=== PATIENT | female | born 1950 | race Caucasian/White ===

== ENCOUNTER 2019-07-13 09:06 | Outpatient (CLI) | payer MEDICARE, SELFPAY ==
--- NOTE | ~2019-07-13 | MM_ITS ---
EXAMINATION: MM screening [facility] BI w megan HISTORY: Screening mammogram TECHNIQUE: Craniocaudal and mediolateral oblique 3-D tomosynthesis images were obtained and synthetic 2-D images were generated. CAD analysis was submitted and interpreted. COMPARISON: Comparison to multiple prior studies sequentially, with oldest reviewed study dated 05/18. BREAST PARENCHYMAL COMPOSITION: There are scattered areas of fibroglandular density. FINDINGS: There is no evidence of suspicious mass, calcification, or architectural distortion to sugg est malignancy in either breast. There has been no suspicious interval change. IMPRESSION: 1. No mammographic evidence of malignancy. 2. Recommend routine screening mammography in one year. BI-RADS Category 1: Negative Reviewed, dictated and finalized at location A.
== END 2019-07-13 09:07 | disposition home or self-care (01) ==
PROVIDERS: PCP Family Medicine; Visit Provider Family Medicine
DX: Z12.31 Encounter for screening mammogram for malignant neoplasm of breast (principal)
CPT/HCPCS: 77063; 77067

== ENCOUNTER 2019-10-30 10:16 | Outpatient (CLI) | payer MEDICARE, SELFPAY ==
--- NOTE | ~2019-10-30 | XR_ITS ---
EXAMINATION: XR abdomen/kub 1V DATE: 10/30/2019 10:38 INDICATION: Right renal stone. TECHNIQUE: A supine view of the abdomen on 2 radiographs was obtained. COMPARISON: 02/13/2019, 10/13/2018 and 09/26/2018 FINDINGS: 1-2 mm stone projecting over the mid left kidney. The larger stones previously seen at the left and r ight kidneys are no longer visualized likely representing sequela of prior lithotripsy. Unchanged pat tern of phleboliths in the pelvis. There is a new approximate 5 mm calcification projecting over the right sacral ala along the course of the right ureter as indicated by a right internal ureteral stent on prior radiographs which is suspicious for a stone fragment in the distal right ureter. Similarly there is a new 4 mm calcific density projecting over the left sacral ala suspicious for stone fragmen t in the left ureter. Normal bowel gas pattern with moderate amount of stool scattered throughout the colon. Moderate to severe bilateral lower lumbar facet osteoarthritis. Lung bases are clear. IMPRESSION: 1. There are new 4-5 mm calcific densities projecting over the left and right sacral ala along the ex pected course of the ureters which could represent stone fragments post lithotripsy. Reviewed, dictated and finalized at location A. IMPRESSION: 1. There are new 4-5 mm calcific densities projecting over the left and right s acral ala along the expected course of the ureters which could represent stone fragments post lithotripsy.
== END 2019-10-30 10:17 | disposition home or self-care (01) ==
PROVIDERS: PCP Family Medicine; Visit Provider Urology
DX: N20.0 Calculus of kidney (principal)
CPT/HCPCS: 74018

== ENCOUNTER → 2019-11-05 08:21 | Outpatient (CLI) | payer MEDICARE, SELFPAY ==
--- NOTE | ~2019-11-05 | CT_ITS ---
EXAMINATION: CT abdomen pelvis wo con DATE: 11/05/2019 08:37 INDICATION: Abnormal KUB. Possible ureteral stones. History of kidney stones. TECHNIQUE: Computed tomography (CT) of the abdomen and pelvis was performed without intravenous contr ast. The dose-length product was 318.02 mGy-cm. Automated exposure control and iterative reconstructi on technique were employed. COMPARISON: KUB dated 05/30/2018 FINDINGS: Lung bases are unremarkable. No significant pleural or pericardial effusion. Heart size nor mal. Stable 1 cm hypodensity left hepatic lobe, consistent with a cyst. The spleen, pancreas, adrenal glands are unremarkable. There is a 2-3 mm nonobstructing left renal stone. There is a 4 mm distal r ight ureteral stone at the sacral level measuring 5 mm with moderate hydronephrosis, image 80. There is a 5 mm distal left ureteral stone overlying the sacrum, image 75, with moderate hydroureteronephro sis. Gallbladder is present. Nonobstructive bowel gas pattern. No abnormal pelvic masses or fluid collecti ons. No free air or free fluid. No evidence for hernia. No acute osseous abnormality. IMPRESSION: 1. Obstructing distal bilateral ureteral stones at the sacral level with moderate bilateral hydrouret eronephrosis. 2: Nonobstructing left nephrolithiasis. Reviewed, dictated and finalized at location A. IMPRESSION: 1. Obstructing distal bilateral ureteral stones at the sacral level with modera te bilateral hydroureteronephrosis. 2: Nonobstructing left nephrolithiasis.
== END ==
PROVIDERS: PCP Family Medicine; Visit Provider Urology
DX: N20.2 Calculus of kidney with calculus of ureter (principal)
CPT/HCPCS: 74176

== ENCOUNTER 2019-11-24 01:35 | Outpatient (CLI) | payer MEDICARE, SELFPAY ==
[2019-11-24 17:56] LABS: SARS-CoV-2 RNA PCR Negative
== END 2019-11-24 01:36 | disposition home or self-care (01) ==
LOC: ANHCOVIDDT 01:36
PROVIDERS: PCP Family Medicine; Visit Provider Urology
DX: Z01.818 Encounter for other preprocedural examination (principal); Z11.59 Encounter for screening for other viral diseases
CPT/HCPCS: 87635; C9803; U0003

== ENCOUNTER 2019-11-24 08:17 | Outpatient (CLI) | payer MEDICARE, SELFPAY ==
--- NOTE | 2019-11-24 08:18 | ECG_ITS ---
Measurements Intervals [place] Rate: 61 P: 19 NM: 177 QRS: 8 QRSD: 143 T: 7 QT: 416 QTc: 421 Interpretive Statements SINUS RHYTHM RIGHT BUNDLE BRANCH BLOCK ABNORMAL ECG Electronically Signed On 11-24-2019 8:38:38 CDT by Nikhil Ortega D.O.
[2019-11-24 08:52] LABS: Anion Gap 11.6 mmol/L (7-16); Blood Urea Nitrogen 23 mg/dL (7-17); Calcium 9.1 mg/dL (8.4-10.2); Carbon Dioxide 30 mmol/L (22-30); Chloride 99 mmol/L (98-107); Estimated Glomerular Filt Rate 50; Glucose 99 mg/dL (65-105); Potassium 4.6 mmol/L (3.4-5.0); Sodium 136 mmol/L (137-145)
== END 2019-11-24 08:18 | disposition home or self-care (01) ==
LOC: ANHSURGERY 08:18
PROVIDERS: Anesthesiology; PCP Family Medicine; Visit Provider Urology
DX: Z01.818 Encounter for other preprocedural examination (principal); I10 Essential (primary) hypertension; R94.31 Abnormal electrocardiogram [ECG] [EKG]
CPT/HCPCS: 36415; 80048; 87635; 93005; C9803; U0003

== ENCOUNTER 2019-11-26 02:11 | Day surgery (SDC) | payer MEDICARE, SELFPAY ==
[2019-11-13 10:39] VITALS: BMI 25.0
--- NOTE | 2019-11-23 18:18 | P.HP_ITS ---
History of Present Illness History of Present Illness Consent: Risks, benefits, and alternatives have been discussed and questions answered. Patient agrees to proceed with procedure. Chief complaint: History of Kidney Stones Narrative: Promise Jerome is a 68 year old female with a history of hyperparathyroidism. During routine followups, although she was having no pain, a KUB suggested the presence of bilateral mid ureteral stones. This was confirmed by CT scan of the abdomen and pelvis without contrast. She now presents for endoscopic extraction of the stones. Review of Systems Cardiovascular: Cardiovascular: Denies chest pain, Denies lightheadedness, Denies palpitations and Denies dyspnea Respiratory: Respiratory: Denies dyspnea Gastrointestinal: Gastrointestinal: Denies diarrhea, Denies nausea and Denies vomiting Genitourinary: Genitourinary: Denies hematuria and Denies dysuria Endocrine: Endocrine: Denies palpitations PMFSH Past Medical History Medical History Hepatitis C antibody test negative (~06/17/17) Hyperparathyroidism Surgical History Surgical History History of bilateral oophorectomy (~11/28/11) History of hysterectomy (~11/28/11) History of parathyroidectomy (~01/2019) Family History Family History Father Family history of premature coronary heart disease Hypertension Family history of elevated blood lipids Acute myocardial infarction Family history of cardiovascular disease Mother Hypertension Family history of elevated blood lipids Sibling Hypertension Family history of elevated blood lipids Social History Social History Smoking status: Never smoker Second hand tobacco smoke exposure: No Alcohol intake: current Drinks per week: 2 Substance use: never Spiritual care concerns: No Meds Home Medications and Allergies Home Medications Medication Instructions Recorded Confirmed Type cholecalciferol (vitamin D3) 50 2,000 unit PO DAILY 04/07/19 11/13/19 History mcg (2,000 unit) tablet melatonin 5 mg tablet 10 mg PO HS tablet 04/07/19 11/13/19 History hydrochlorothiazide 12.5 mg tablet 12.5 mg PO DAILY #90 tablet 07/13/19 11/13/19 Rx losartan 100 mg tablet 100 mg PO DAILY #90 tablet 09/29/19 11/13/19 Rx simvastatin 10 mg PO QPM 11/13/19 11/13/19 History Allergies Allergy/AdvReac Type Severity Reaction Status Date / Time codeine Allergy Unknown Nausea Verified 11/13/19 10:21 Exam Const: General: no acute distress Resp: Effort & Inspection: normal respiratory effort GI: Inspection: non-distended GI Palp: No abdominal tenderness and No Guarding due to palpation present (GI) Auscultation: normal bowel sounds Assessment and Plan Assessment and plan (1) Bilateral ureteral calculi: Code(s): N20.1 - Calculus of ureter Status: Acute Assessment and Plan: * Cystoscopy with bilateral ureteroscopy, bilateral ureteral stone extraction with possible laser lithotripsy, bilateral ureteral stent placement
--- NOTE | 2019-11-25 09:55 | WPDANESEPPF ---
Anes - Initial Pre Proc Eval Procedure: Operation Date: 11/26/19 12:00 Proposed Procedures p Cystoscopy, Bilateral Ureteroscopy, Bilateral Stone Extraction, And Possible Bilateral Stent Placement - Cirilo Benson MD s Holmium Laser Procedure - Cirilo Benson MD <Dorian Choe MD - Last Filed: 11/27/19 10:06> Date/Time: 11/25/19 09:55 <Dorian Choe MD - Last Filed: 11/27/19 10:06> Surgeon: Cirilo Benson MD <Dorian Choe MD - Last Filed: 11/27/19 10:06> Pre Op Diagnosis: History of Kidney Stones <Dorian Choe MD - Last Filed: 11/27/19 10:06> Patient Data Age: 68 Gender: F Height: 1.57 m Weight: 62.15 kg <Dorian Choe MD - Last Filed: 11/27/19 10:06> Allergies Allergy/AdvReac Type Severity Reaction Status Date / Time codeine Allergy Unknown Nausea Verified 11/26/19 10:05 <Dorian Choe MD - Last Filed: 11/27/19 10:06> Home Medications Medication Instructions Recorded Confirmed Type cholecalciferol (vitamin D3) 50 2,000 unit PO DAILY 04/07/19 11/26/19 History mcg (2,000 unit) tablet melatonin 5 mg tablet 10 mg PO HS tablet 04/07/19 11/26/19 History hydrochlorothiazide 12.5 mg tablet 12.5 mg PO DAILY #90 tablet 07/13/19 11/26/19 Rx losartan 100 mg tablet 100 mg PO DAILY #90 tablet 09/29/19 11/26/19 Rx simvastatin 10 mg PO QPM 11/13/19 11/26/19 History hydrocodone-acetaminophen 1 - 2 tablet PO Q6H PRN #20 tablet 11/26/19 Rx sulfamethoxazole-trimethoprim 1 tablet PO Q12H #6 tablet 11/26/19 Rx <Dorian Choe MD - Last Filed: 11/27/19 10:06> Patient hx anesthesia problems: none <Carlos Pierce DO - Last Filed: 11/26/19 10:20> Family hx anesthesia problems: none <Carlos Pierce DO - Last Filed: 11/26/19 10:20> [facility] Family History Family History: Family History Father Family history of premature coronary heart disease Hypertension Family history of elevated blood lipids Acute myocardial infarction Family history of cardiovascular disease Mother Hypertension Family history of elevated blood lipids Sibling Hypertension Family history of elevated blood lipids <Dorian Choe MD - Last Filed: 11/27/19 10:06> Social History Social History: Social History Smoking status: Never smoker Second hand tobacco smoke exposure: No Alcohol intake: current Drinks per week: 2 Alcohol use details: WINE Substance use: never Living arrangements: with family Spiritual care concerns: No <Dorian Choe MD - Last Filed: 11/27/19 10:06> Anes - Eval Final PreProcedure Day of Procedure 11/25/19 09:55 <Dorian Choe MD - Last Filed: 11/27/19 10:06> Patient weight: overweight <Dorian Choe MD - Last Filed: 11/27/19 10:06> overweight <Carlos Pierce DO - Last Filed: 11/26/19 10:20> Heart: regular rate and rhythm <Dorian Choe MD - Last Filed: 11/27/19 10:06> regular rate and rhythm <Carlos Pierce DO - Last Filed: 11/26/19 10:20> Lungs: clear to auscultation and normal air movement <Dorian Choe MD - Last Filed: 11/27/19 10:06> clear to auscultation and normal air movement <Carlos Pierce DO - Last Filed: 11/26/19 10:20> Airway: Mallampati scale class II <Dorian Choe MD - Last Filed: 11/27/19 10:06> Mallampati scale class II <Carlos Pierce DO - Last Filed: 11/26/19 10:20> Neurological: alert and oriented <Dorian Choe MD - Last Filed: 11/27/19 10:06> alert and oriented <Carlos Pierce DO - Last Filed: 11/26/19 10:20> Last oral intake: >/= 8 hours <Dorian Choe MD - Last Filed: 11/27/19 10:06> >/= 8 hours <Carlos Pierce DO - Last Filed: 11/26/19 10:20> ASA classification: II <Dorian Dale
[2019-11-26] VITALS (7 sets, daily range): BP systolic 118–137; BP diastolic 68–76; PULSE 62–75; RESP 12–20; TEMP 36.3; O2SAT 100
--- NOTE | ~2019-11-26 | XR_ITS ---
EXAMINATION: XR retrograde pyelo w/stent LT DATE: 11/26/2019 12:36 INDICATION: Left internal ureteral stent placement TECHNIQUE: Fluoroscopic images from a left internal ureteral stent placement are submitted for review . 38 seconds of fluoroscopy time. FINDINGS: There is a left double-J internal ureteral stent projecting in expected position, with proximal [place] loop at the level of the renal pelvis and distal loop in the pelvis within the bladder lumen. IMPRESSION: 1. Left internal ureteral stent placement. Please refer to real-time procedural findings for detail s. Reviewed, dictated and finalized at location A. IMPRESSION: 1. Left internal ureteral stent placement. Please refer to real-time procedur al findings for details.
--- NOTE | 2019-11-26 06:55 | WPDHPUPDATE1 ---
History and Physical Update Update Date/Time: 11/26/19 06:55 History and Physical has been reviewed, including an updated exam of the patient. There are NO changes in the patient's condition. Risks, benefits, and alternatives have been discussed and questions answered. Patient agrees to proceed with procedure.
[2019-11-26] MEDS: LACTATED RINGERS 1,000 ML 30 ML IV CONT (10:00)
[2019-11-26] MEDS: ceFAZolin 2 GM/D5W 50 ML 2 GM/50 ML BAG IVPB (11:45)
--- NOTE | 2019-11-26 12:33 | PM.PROC ---
Procedure Note - Detailed Date of procedure: 11/26/19 Pre-op diagnosis: History of Kidney Stones Post-op diagnosis: same Procedure performed: 1. Cystoscopy, right ureteroscopy with stone extraction 2. Left retrograde pyelogram. 3. Left laser lithotripy with stone extraction. 4. Left stent placement. Description of procedure: The patient was brought to the operative suite where she is prepped and draped in a routine sterile fashion while in the dorsal lithotomy position after the uneventful induction of a general LMA anesthetic. A 19F rigid cystoscope was placed in the bladder. The patient had no evidence of urethral stricture or bladder neck contracture. The bladder mucosa was endoscopically normal without hyperemia or neoplasm. There was a single, orthotopic ureteral orifice bilaterally. A 0.035 glidewire was advanced firstinto the right renal pelvis under fluoroscopy. The distal ureter was dilated with an 8F/10F ureteral dilator. Ureteroscopy was undertaken with a short tapered semi-rigid ureteroscope. There was a 5mm right mid-uretral stone - with ureteroscopy I was able to extract the stone using a 1.9F Escape, disposable stone basket. This was a simple ureteral management and I opted not to place a ureteral stent. A 0.035 guidewire was then advanced into the left ureter and ureteoscopy was undertaken after dilating with a 8F/10F dilator. On the left she has a larger impacted stone that I fractured with a 273micron holmium laser fiber and extracted all small pieces. Due to the extent of this manipulation I did place a 4.8F double-J ureteral stent on the left side. The proximal coil of the stent was confirmed to be in the renal pelvis and the distal coil in the bladder. The patient's bladder was emptied and she was taken to the recovery room having tolerated this procedure well. Anesthesia: GLMA Surgeon: Cirilo Benson MD Cardiovascular Invasive Specialist: None Drains: Yes (4.8F left ureteral stent) Packing: No Pathology: yes (Bilateral ureteral stones) Complications: No immediate complications Condition: stable Disposition: PACU
== END 2019-11-26 14:22 | disposition home or self-care (01) ==
PROVIDERS: PCP Family Medicine; Visit Provider Urology
PROC: (CPT 52352; principal; 2019-11-26 12:00)
PROC: (CPT 52356; 2019-11-26 12:00)
DX: N20.1 Calculus of ureter (principal); E21.3 Hyperparathyroidism, unspecified
CPT/HCPCS: 52356; 74420; 82365; 88300; A9270; C1769; C2617; J0690; J1100; J2405; J2704; J3010; J7120; Q9966

== ENCOUNTER 2020-01-25 15:43 | Outpatient (CLI) | payer MEDICARE, SELFPAY ==
--- NOTE | 2020-01-28 12:22 | WPDHOLTEREM ---
Holter/Event Monitor Holter/Event Monitor Date of procedure: 01/25/20 Procedure Type: 48 hour holter monitor Indications: Palpitations Conclusion: 1. 48 hour holter monitor on 01/25/20. 2. Underlying rhythm is sinus rhythm. HR range 46-130 bpm; average HR 72 bpm. 3. There are 10 premature supraventricular complexes and 1 supraventricular triplet. No supraventricular tachycardia. 4. There are 1,957 premature ventricular complexes, 1 ventricular couplet and 9 ventricular bigeminy. No ventricular tachycardia. 5. Underlying RBBB. No sinoatrial or atrioventricular blocks. No significant pauses greater than 2 seconds. 6. Patient reports 2 episodes of chest pressure which demonstrate sinus rhythm, HR range 94-95 bpm and one PVC.
== END 2020-01-25 15:44 | disposition home or self-care (01) ==
PROVIDERS: PCP Family Medicine; Visit Provider Internal Medicine Cardiovascular Disease
DX: R00.2 Palpitations (principal)
CPT/HCPCS: 36415; 84443; 93225; 93226

== ENCOUNTER → 2020-07-14 13:32 | Outpatient (CLI) | payer MEDICARE, SELFPAY ==
--- NOTE | ~2020-07-14 | XR_ITS ---
EXAMINATION: XR abdomen/kub 1V EXAM DATE: 07/14/2020 13:48 INDICATION: History kidney stones. TECHNIQUE: Frontal projection of the upper abdomen, frontal projection lower abdomen/pelvis for inter pretation. Comparison is made to prior examination from 10/30/2019. FINDINGS: There is expected amount of colonic stool and gas. No small bowel dilation, nonobstructiv e bowel gas pattern. There are no suspicious calcifications identified, stool does overlie the jody l contours. There is no organomegaly suspected. Advanced facet arthropathy at about L4-5. Lung bas es unremarkable. IMPRESSION: No suspicious calcifications identified. Reviewed, dictated and finalized at location A.
== END ==
PROVIDERS: PCP Family Medicine; Visit Provider Urology
DX: Z87.442 Personal history of urinary calculi (principal)
CPT/HCPCS: 74018

== ENCOUNTER 2020-09-08 09:26 | Outpatient (CLI) | payer MEDICARE, SELFPAY ==
--- NOTE | ~2020-09-08 | MM_ITS ---
EXAMINATION: MM screening [facility] BI w megan HISTORY: Screening mammogram TECHNIQUE: Craniocaudal and mediolateral oblique 3-D tomosynthesis images were obtained and synthetic 2-D images were generated. CAD analysis was submitted and interpreted. COMPARISON: 07/13/2019, 07/08/2018, 06/27/2017 BREAST PARENCHYMAL COMPOSITION: There are scattered areas of fibroglandular density. FINDINGS: There is no evidence of suspicious mass, calcification, or architectural distortion to sugg est malignancy in either breast. There has been no suspicious interval change. IMPRESSION: 1. No mammographic evidence of malignancy. 2. Recommend routine screening mammography in one year. BI-RADS Category 1: Negative Reviewed, dictated and finalized at location A.
== END 2020-09-08 09:27 | disposition home or self-care (01) ==
PROVIDERS: PCP Family Medicine; Visit Provider Family Medicine
DX: Z12.31 Encounter for screening mammogram for malignant neoplasm of breast (principal)
CPT/HCPCS: 77063; 77067

== ENCOUNTER 2020-10-17 09:21 | Outpatient (CLI) | payer MEDICARE, SELFPAY ==
--- NOTE | ~2020-10-17 | DEXA_ITS ---
Bone Density Report Name: Promise Jerome Age: 69 Sex: Female Ethnicity: White Date of : 1950 Indication: osteopenia; monitoring treatment; height loss; hysterectomy; Referring Provider: Tuyet Benson Study: Bone densitometry was performed. Exam Date: October 17, 2020 Accession number: [id number] Bone Density: Region BMD T-score Z-score Classification AP Spine (L1-L4) 0.876 -1.6 0.5 Osteopenia Femoral Neck (Left) 0.653 -1.8 0.0 Osteopenia Total Hip (Left) 0.858 -0.7 0.7 Normal Total Hip Bilateral Avg 0.831 -0.9 0.5 Normal Femoral Neck (Right) 0.659 -1.7 0.0 Osteopenia Total Hip (Right) 0.803 -1.1 0.3 Osteopenia World Health Organization criteria for BMD impression classify patients as: Normal (T-score at or above -1.0), Osteopenia (T-score between -1.0 and -2.5), or Osteoporosis (T-score at or below -2.5). 10-year Fracture Risk: FRAX not reported because: Treated for osteoporosis Previous Exams: Region Exam Age BMD T-score BMD Change BMD Change Date g/cm2 vs Baseline vs Previous AP Spine(L1-L4) 10/17/2020 69 0.876 -1.6 0.078(9.7%)# 0.078(9.7%)# 05/11/2011 60 0.798 -2.3 Total Hip(Left) 10/17/2020 69 0.858 -0.7 0.014(1.7%)# 0.014(1.7%)# 05/11/2011 60 0.844 -0.8 Total Hip(Right) 10/17/2020 69 0.803 -1.1 0.000(0.0%)# 0.000(0.0%)# 05/11/2011 60 0.803 -1.1 *Denotes significance at 95% confidence level, LSC for AP Spine = 0.022 g/cm2, LSC for Total Hip = 0.027 g/cm2 Clinical Information Provided by Patient: Is being treated for osteoporosis Has used the following medications: Fosamax (i.e. alendronate), Vitamin D, Calcium Has the following medical conditions: Hysterectomy Patient maximum height was 62 Menopause Age: 41 Onset of menses at age 14 Number of children 2 Impression: The patient has low bone mass, based on the Left Femoral Neck T-score. No significant bone loss was observed. Discussion: PATIENT UNDER TREATMENT WITH NO SIGNIFICANT BMD LOSS SINCE LAST EXAM. In an untreated patient, BMD typically declines with age. A lack of decline or gain is usually a sign that treatment is efficacious and fracture risk is reduced. It is important to ask patients whether they are taking their medications and to encourage continued and appropriate compliance with their osteoporosis therapies to reduce fracture risk. It is also important to review their risk factors and encourage appropriate calcium and vitamin D intakes,
== END 2020-10-17 09:22 | disposition home or self-care (01) ==
LOC: ANHIMG 09:23
PROVIDERS: PCP Family Medicine; Visit Provider Physician Assistant
DX: Z78.0 Asymptomatic menopausal state (principal); M85.88 Other specified disorders of bone density and structure, other site; M85.852 Other specified disorders of bone density and structure, left thigh; M85.851 Other specified disorders of bone density and structure, right thigh
CPT/HCPCS: 77080

== ENCOUNTER 2020-11-17 01:45 | Day surgery (SDC) | payer MEDICARE, SELFPAY ==
[2020-11-03 10:25] VITALS: BMI 26.6
[2020-11-17 06:22] VITALS: BP 136/69; PULSE 78; RESP 20; TEMP 36.6; O2SAT 99
--- NOTE | 2020-11-17 06:44 | WPDANESEPPF ---
Anes - Initial Pre Proc Eval Procedure: Operation Date: 11/17/20 07:30 Proposed Procedures p Screening Colonoscopy - Caden Goldsmith MD Date/Time: 11/17/20 06:44 Surgeon: Caden Goldsmith MD Pre Op Diagnosis: neoplasm screening Patient Data Age: 69 Gender: F Height: 1.55 m Weight: 62.3 kg Last Vital Signs Temp 36.6 C 11/17/20 06:22 Pulse 78 11/17/20 06:22 Resp 20 11/17/20 06:22 BP 136/69 11/17/20 06:22 Pulse Ox 99 11/17/20 06:22 Allergies Allergy/AdvReac Type Severity Reaction Status Date / Time codeine Allergy Unknown Nausea Verified 11/17/20 06:16 Home Medications Medication Instructions Recorded Confirmed Type cholecalciferol (vitamin D3) 50 2,000 unit PO DAILY 04/07/19 11/17/20 History mcg (2,000 unit) tablet melatonin 5 mg tablet 10 mg PO HS PRN tablet 04/07/19 11/17/20 History hydrochlorothiazide 12.5 mg PO DAILY 11/03/20 11/17/20 History losartan 50 mg PO DAILY 11/03/20 11/17/20 History simvastatin 20 mg PO DAILY 11/03/20 11/17/20 History Patient hx anesthesia problems: none Family hx anesthesia problems: none PMFSH Past Medical History Medical History Chronic kidney disease, stage 3 Essential (primary) hypertension Hepatitis C antibody test negative (~06/17/17) Hyperparathyroidism Irregular heart beat Pure hypercholesterolemia Surgical History Surgical History History of bilateral oophorectomy (~11/28/11) History of hysterectomy (~11/28/11) History of Mohs micrographic surgery for skin cancer (~06/29/20) nose and right cheek, with skin graft repair 07/08/20 History of parathyroidectomy (~01/2019) Family History Family History Father Family history of premature coronary heart disease Hypertension Family history of elevated blood lipids Acute myocardial infarction Family history of cardiovascular disease Mother Hypertension Family history of elevated blood lipids Sibling Hypertension Family history of elevated blood lipids Social History Social History Smoking status: Never smoker Second hand tobacco smoke exposure: No Alcohol intake: current Drinks per week: 2 Alcohol use details: Monthly Substance use: never Living arrangements: with family Spiritual care concerns: No Anes - Eval Final PreProcedure Day of Procedure 11/17/20 06:44 Patient weight: overweight Heart: regular rate and rhythm Lungs: clear to auscultation Airway: Mallampati scale Neurological: alert and oriented Last oral intake: >/= 8 hours ASA classification: III Emergent: no Anesthetic plan: proceed Anesthesia type and monitoring: general GIVS and standard monitoring Informed Consent: The patient's anesthetic plan and its attendant risks and benefits were discussed with the patient/family/POA. Questions were solicited and answers provided to the satisfaction of the patient/family/POA.
[2020-11-17] MEDS: LACTATED RINGERS 1,000 ML 150 ML IV CONT (06:58)
--- NOTE | 2020-11-17 07:09 | WPDGICN ---
Assessment and Plan Assessment and plan (1) Encounter for screening colonoscopy: Code(s): Z12.11 - Encounter for screening for malignant neoplasm of colon Status: Acute Assessment and Plan: Patient presents for screening colonoscopy. Has been 10 years since last exam. She appears to be at average risk for colon polyps. Further recommendations will be given after endoscopy. GI Consult Note Consult date/time: 11/17/20 07:09 HPI: Promise Jerome is a 69 year old female Presents for screening colonoscopy. Patient states that her current weight appetite and bowel movements are normal. She denies abdominal pain. She has had no bleeding. She denies abdominal pain. Family history is noncontributory. Her last colonoscopy was in 2010. Review of Systems Review of Systems: All systems reviewed & are unremarkable except as noted in HPI and below PMFSH Past Medical History Medical History Chronic kidney disease, stage 3 Essential (primary) hypertension Hepatitis C antibody test negative (~06/17/17) Hyperparathyroidism Irregular heart beat Pure hypercholesterolemia Surgical History Surgical History History of bilateral oophorectomy (~11/28/11) History of hysterectomy (~11/28/11) History of Mohs micrographic surgery for skin cancer (~06/29/20) nose and right cheek, with skin graft repair 07/08/20 History of parathyroidectomy (~01/2019) Family History Family History Father Family history of premature coronary heart disease Hypertension Family history of elevated blood lipids Acute myocardial infarction Family history of cardiovascular disease Mother Hypertension Family history of elevated blood lipids Sibling Hypertension Family history of elevated blood lipids Social History Social History Smoking status: Never smoker Second hand tobacco smoke exposure: No Alcohol intake: current Drinks per week: 2 Alcohol use details: Monthly Substance use: never Living arrangements: with family Spiritual care concerns: No Meds Home Medications and Allergies Home Medications Medication Instructions Recorded Confirmed Type cholecalciferol (vitamin D3) 50 2,000 unit PO DAILY 04/07/19 11/17/20 History mcg (2,000 unit) tablet melatonin 5 mg tablet 10 mg PO HS PRN tablet 04/07/19 11/17/20 History hydrochlorothiazide 12.5 mg PO DAILY 11/03/20 11/17/20 History losartan 50 mg PO DAILY 11/03/20 11/17/20 History simvastatin 20 mg PO DAILY 11/03/20 11/17/20 History Allergies Allergy/AdvReac Type Severity Reaction Status Date / Time codeine Allergy Unknown Nausea Verified 11/17/20 06:16 Vital Signs Vital Signs - 24 hr 11/17/20 06:22 Temperature 97.8 F Pulse Rate 78 Respiratory Rate 20 Blood Pressure 136/69 Pulse Oximetry 99 Exam Narrative: Exam Narrative: Physical exam reveals Vital Signs to be stable. HEENT exam is unremarkable. Patient is anicteric. Lungs are clear to auscultation and percussion. Heart is without murmur or extra sounds. Abdominal exam bowel sounds are present soft nontender with no organomegaly. Digital external rectal exam is normal.
[2020-11-17 07:47] VITALS: BP 80/38; PULSE 68; RESP 29; O2SAT 99
[2020-11-17 07:57] VITALS: BP 74/42; PULSE 67; RESP 25; O2SAT 100
[2020-11-17 08:07] VITALS: BP 96/51; PULSE 66; RESP 17; O2SAT 100
== END 2020-11-17 08:15 | disposition home or self-care (01) ==
PROVIDERS: PCP Family Medicine; Visit Provider Internal Medicine Gastroenterology
PROC: 0DJD8ZZ Inspection of Lower Intestinal Tract, Via Natural or Artificial Opening Endoscopic (ICD-10-PCS; CPT 45378; principal; 2020-11-17 07:30)
DX: Z12.11 Encounter for screening for malignant neoplasm of colon (principal); K64.8 Other hemorrhoids; I12.9 Hypertensive chronic kidney disease with stage 1 through stage 4 chronic kidney disease, or unspecified chronic kidney disease; N18.30 Chronic kidney disease, stage 3 unspecified; E78.00 Pure hypercholesterolemia, unspecified; E21.3 Hyperparathyroidism, unspecified
CPT/HCPCS: G0121; J2704; J7120

== ENCOUNTER 2021-09-20 15:32 | Outpatient (CLI) | payer MEDICARE, SELFPAY ==
--- NOTE | ~2021-09-20 | MM_ITS ---
EXAMINATION: MM screening roberto carlos BI w megan HISTORY: Screening mammogram TECHNIQUE: Craniocaudal and mediolateral oblique 3-D tomosynthesis images were obtained and synthetic 2-D images were generated. CAD analysis was submitted and interpreted. COMPARISON: 09/08/2020, 07/13/2019, 07/08/2018 bilateral screening mammogram examinations BREAST PARENCHYMAL COMPOSITION: The breasts are almost entirely fatty.. FINDINGS: There is no evidence of suspicious mass, calcification, or architectural distortion to sugg est malignancy in either breast. There has been no suspicious interval change. IMPRESSION: 1. No mammographic evidence of malignancy. 2. Recommend routine screening mammography in one year. BI-RADS Category 1: Negative Reviewed, dictated and finalized at location A.
== END 2021-09-20 15:33 | disposition home or self-care (01) ==
LOC: ANHIMG 15:33
PROVIDERS: PCP Family Medicine; Visit Provider Family Medicine
DX: Z12.31 Encounter for screening mammogram for malignant neoplasm of breast (principal)
CPT/HCPCS: 77063; 77067

== ENCOUNTER 2023-08-07 09:51 | Outpatient (CLI) | payer MEDICARE, SELFPAY ==
--- NOTE | ~2023-08-07 | DEXA_ITS ---
Bone Density Report Name: MARTÍN CHAMBERLAIN Age: 72 Sex: Female Ethnicity: White Date of : 1950 Indication: osteopenia; height loss; hysterectomy; Referring Provider: JERSON CHANEL Study: Bone densitometry was performed. Exam Date: August 07, 2023 Accession number: [id number] Bone Density: Region BMD T-score Z-score Classification AP Spine(L1-L4) 0.880 -1.5 0.7 Osteopenia Femoral Neck (Left) 0.683 -1.5 0.4 Osteopenia Total Hip (Left) 0.845 -0.8 0.8 Normal Femoral Neck (Right) 0.664 -1.7 0.2 Osteopenia Total Hip (Right) 0.819 -1.0 0.6 Normal Total Hip Mean 0.832 -0.9 0.7 Normal World Health Organization criteria for BMD impression classify patients as: Normal (T-score at or above -1.0), Osteopenia (T-score between -1.0 and -2.5), or Osteoporosis (T-score at or below -2.5). 10-year Fracture Risk(1): Major Osteoporotic Fracture 11% Hip Fracture 1.9% Reported Risk Factors: [place] (), Neck BMD=0.664, BMI=24.9 (1) FRAX(R) Version 3.08. Fracture probability calculated for an untreated patient. Fracture probability may be lower if the patient has received treatment. Previous Exams: Region Exam Age BMD T-score BMD Change BMD Change Date g/cm2 vs Baseline vs Previous AP Spine (L1-L4) 08/07/2023 72 0.880 -1.5 0.004 (0.5%) 0.004 (0.5%) 10/17/2020 69 0.876 -1.6 Total Hip(Left) 08/07/2023 72 0.845 -0.8 -0.014 (-1.6%) -0.014 (-1.6%) 10/17/2020 69 0.858 -0.7 Total Hip(Right) 08/07/2023 72 0.819 -1.0 0.016 (2.0%) 0.016 (2.0%) 10/17/2020 69 0.803 -1.1 *Denotes significance at 95% confidence level, LSC for AP Spine = 0.022 g/cm2, LSC for Total Hip = 0.027 g/cm2 Clinical Information Provided by Patient: Has used the following medications: Vitamin D Has the following medical conditions: Hysterectomy Patient maximum height was 62 Menopause Age: 41 Onset of menses at age 14 Number of children 2 Impression: The patient has low bone mass, based on the Right Femoral Neck T-score. The patient has an estimated ten-year risk of hip fracture of 1.9% and an estimated ten-year risk of major fracture of 11%, based on the WHO FRAX algorithm. No significant bone loss was observed. Discussion: BONE DENSITY IS LOW AT ONE OR MORE SKELETAL SITES. This patient's lowest T-score is low at one or more skeletal sites. It meets the World Health Organization's (WHO) criteria for ?low bone mass? (T-score b
== END 2023-08-07 09:52 | disposition home or self-care (01) ==
PROVIDERS: PCP Family Medicine; Visit Provider Nurse Practitioner
DX: Z78.0 Asymptomatic menopausal state (principal); M85.89 Other specified disorders of bone density and structure, multiple sites
CPT/HCPCS: 77080

== ENCOUNTER 2023-09-16 09:46 | Outpatient (CLI) | payer MEDICARE, SELFPAY ==
--- NOTE | ~2023-09-16 | MM_ITS ---
EXAMINATION: MM screening roberto carlos BI w megan HISTORY: Screening TECHNIQUE: Craniocaudal and mediolateral oblique 3-D tomosynthesis images were obtained and synthetic 2-D images were generated. CAD analysis was submitted and interpreted. COMPARISON: Comparison to multiple prior studies sequentially, with oldest reviewed study dated 05/24. BREAST PARENCHYMAL COMPOSITION: Not dense: There are scattered areas of fibroglandular density. FINDINGS: There is no evidence of suspicious mass, calcification, or architectural distortion to sugg est malignancy in either breast. There has been no suspicious interval change. IMPRESSION: 1. No mammographic evidence of malignancy. 2. Recommend routine screening mammography in one year. BI-RADS Category 1: Negative Reviewed, dictated and finalized at location A.
== END 2023-09-16 09:47 | disposition home or self-care (01) ==
LOC: ANHIMG 09:49
PROVIDERS: PCP Family Medicine; Visit Provider Nurse Practitioner
DX: Z12.31 Encounter for screening mammogram for malignant neoplasm of breast (principal)
CPT/HCPCS: 77063; 77067

== ENCOUNTER 2024-01-31 10:26 | Outpatient (CLI) | payer MEDICARE, SELFPAY ==
[2024-01-31 16:12] LABS: Hemoglobin 14.7 g/dL (12.0-15.0); Mean Corpuscular HGB Conc 33.4 g/dl (32-36); Mean Corpuscular Hemoglobin 31.5 pg (26-34); Mean Corpuscular Volume 94.2 fl (80-100); Mean Platelet Volume 9.6 fl (7.4-10.4); Platelet Count Result 388 k/mm3 (150-375); Red Blood Count 4.67 M/mm3 (4.2-5.4); White Blood Count 7.7 K/mm3 (4.5-10.0)
[2024-01-31 16:30] LABS: Alanine Aminotransferase 24 U/L (6-35); Albumin Level 4.3 g/dL (3.5-5.1); Alkaline Phosphatase 92 U/L (38-126); Anion Gap 5 mmol/L (4-12); Aspartate Amino Transferase 38 U/L (14-36); Bilirubin,Total 0.8 mg/dL (0.2-1.3); Blood Urea Nitrogen 17 mg/dL (7-17); Calcium 9.1 mg/dL (8.4-10.2); Carbon Dioxide 32 mmol/L (22-30); Chloride 102 mmol/L (98-107); Cholesterol 188 mg/dL (0-200); Estimated Glomerular Filt Rate 55; Glucose 94 mg/dL (65-110); HDL Direct 70 mg/dL; Potassium 4.8 mmol/L (3.4-5.0); Sodium 139 mmol/L (137-145); Triglycerides 95 mg/dL (<150)
[2024-01-31 16:46] LABS: LDL Cholesterol Direct 85 mg/dL
[2024-02-05 17:58] LABS: Vitamin D 1,25 (OH)2 Total 32 pg/mL (18-72); Vitamin D2 1,25 (OH)2 <8 pg/mL; Vitamin D3 1,25 (OH)2 32 pg/mL
== END 2024-01-31 10:27 | disposition home or self-care (01) ==
LOC: ANHGOSHLAB 10:27
PROVIDERS: PCP Family Medicine; Visit Provider Family Medicine
DX: E66.3 Overweight (principal); I10 Essential (primary) hypertension; E55.9 Vitamin D deficiency, unspecified; E78.00 Pure hypercholesterolemia, unspecified; Z79.899 Other long term (current) drug therapy
CPT/HCPCS: 36415; 80053; 80061; 82652; 84443; 85027

== ENCOUNTER 2024-02-20 13:21 | Outpatient (CLI) | payer MEDICARE, SELFPAY ==
--- NOTE | ~2024-02-20 | US_ITS ---
EXAM: Focused ultrasound examination of the soft tissues of the left upper extremity HISTORY: R22.31 - Localized swelling, mass and lump, right upper limb TECHNIQUE: Sonographic evaluation of the soft tissues of the left upper arm were performed assessing grayscale appearance and color Doppler flow. COMPARISON: None. FINDINGS: Within the area of clinical concern is a well-circumscribed fusiform shaped focus of decreased homoge neous echogenicity measuring 16 x 14 x 10 mm. Exiting this lesion and coursing centrally is what may be the median nerve. The more distal portion of the median nerve (lateral to this finding) is not definitively visualized. This focus is central to the brachial artery and vein and demonstrates internal vascularity. The fusiform shape is eccentric in location when oriented to the median nerve. Sonographic evaluation of the remainder of the soft tissues of the left upper arm demonstrate benign fibrofatty and fibromuscular elements without a cystic or solid lesion of concern. 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 Less likely etiologies are sarcoma, an enlarged lymph node, and a metastatic deposit. This focus may be amenable to percutaneous biopsy, should that be necessary. Although, given its prox imity to the median nerve, this may be significantly painful. Referral for surgical resection with sparing of the parent median nerve is recommended. Reviewed, dictated and finalized at location A. 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 Less likely etiologies are sarcoma, an enlarged lymph node, and a metastatic de posit. This focus may be amenable to percutaneous biopsy, should that be necessary. Al though, given its proximity to the median nerve, this may be significantly pain ful. Referral for surgical resection with sparing of the parent median nerve is teddy mmended.
== END 2024-02-20 13:22 | disposition home or self-care (01) ==
LOC: GOSHIMG 13:22
PROVIDERS: PCP Family Medicine; Visit Provider Nurse Practitioner
DX: R22.31 Localized swelling, mass and lump, right upper limb (principal)
CPT/HCPCS: 76882

== ENCOUNTER 2024-03-03 08:37 | Outpatient (CLI) | payer MEDICARE, SELFPAY ==
--- NOTE | 2024-03-03 08:53 | EST_ITS ---
Patient Info Name: Promise Jerome Age: 73 years : 1950 Gender: Female Ht: 62 in Wt: 135 lbs BSA: 1.65 m2 HR: 79 bpm BP: 143 / 90 mmHg Exam Date: 03/03/2024 9:02 AM Exam Location: [facility] Patient Status: Outpatient Admit Date: 03/03/2024 Staff Ordering Physician: Alba Shanks Attending Provider: Alba Shanks Exercise Technologist: Dot Parish [facility] Exercise Physician: Nikhil Ortega DO Exam Type: CA stress test treadmill Study Info A treadmill exercise stress test was performed. Summary 1. 1. Negative [place] exercise stress test for ischemic ST changes by ECG criteria. 2. 2. Good functional capacity, achieving 7 METs of workload. 3. 3. Baseline hypertension. 4. 4. Appropriate HR response to exercise. 5. 5. Appropriate HR recovery at 1 minute post exercise. 6. 5. No imaging with stress testing. 7. 6. Patient informed of the above results. Protocol: [place] Stress ECG Details Stage: REST Duration (min): 1 min : 1 sec Speed (mph): 0.0 Grade (%): 0 HR (bpm): 80 SBP (mmHg): 143 DBP (mmHg): 90 METS: --- Stage: REST Duration (min): 2 min : 17 sec Speed (mph): 0.0 Grade (%): 0 HR (bpm): 87 SBP (mmHg): 143 DBP (mmHg): 90 METS: --- Stage: STAGE 1 Duration (min): 1 min : 0 sec Speed (mph): 1.7 Grade (%): 10 HR (bpm): 94 SBP (mmHg): 143 DBP (mmHg): 90 METS: --- Stage: STAGE 1 Duration (min): 2 min : 0 sec Speed (mph): 1.7 Grade (%): 10 HR (bpm): 102 SBP (mmHg): 143 DBP (mmHg): 90 METS: --- Stage: STAGE 1 Duration (min): 3 min : 0 sec Speed (mph): 1.7 Grade (%): 10 HR (bpm): 105 SBP (mmHg): 159 DBP (mmHg): 88 METS: --- Stage: STAGE 2 Duration (min): 1 min : 0 sec Speed (mph): 2.5 Grade (%): 12 HR (bpm): 116 SBP (mmHg): 159 DBP (mmHg): 88 METS: --- Stage: STAGE 2 Duration (min): 2 min : 0 sec Speed (mph): 2.5 Grade (%): 12 HR (bpm): 124 SBP (mmHg): 165 DBP (mmHg): 86 METS: --- Stage: STAGE 2 Duration (min): 3 min : 0 sec Speed (mph): 2.5 Grade (%): 12 HR (bpm): 127 SBP (mmHg): 165 DBP (mmHg): 86 METS: --- Stage: RECOVERY Duration (min): 0 min : 59 sec Speed (mph): 0.0 Grade (%): 0 HR (bpm): 107 SBP (mmHg): 173 DBP (mmHg): 80 METS: --- Stage: RECOVERY Duration (min): 1 min : 59 sec Speed (mph): 0.0 Grade (%): 0 HR (bpm): 92 SBP (mmHg): 173 DBP (mmHg): 80 METS: --- Stage: RECOVERY Duration (min): 2 min : 59 sec Speed (mph): 0.0 Grade (%): 0 HR (bpm): 85 SBP (mmHg): 161 DBP (mmHg): 93 METS: --- Stage: RECOVERY Duration (min): 3 min : 4 sec Speed (mph): 0.0 Grade (%): 0 HR (bpm): 85 SBP (mmHg): 161 DBP (mmHg): 93 METS: --- Rest HR: 87 bpm Peak HR: 128 bpm Rest Sys BP: 143 mmHg Peak Sys BP: 173 mmHg Max Pred HR: 148 bpm % Max Pred HR: 86 % Target HR: 126 bpm Max RPP: 22,144 bpm*mmHg Amos Score: 3 Termination Reason: Reached target heart rate or workload Cardiac Symptoms: Shortness of breath Max ST Seg Deviation: 0.70 mm Total Time: 6 min : 0 sec Rest Pope BP: 90 mmHg Peak Pope BP: 80 mmHg Angina Score: None Total METS: 7.1 Resting ECG Sinus rhythm. Stress ECG No ST changes. Arrhythmias None. Report Signatures
== END 2024-03-03 08:38 | disposition home or self-care (01) ==
PROVIDERS: PCP Family Medicine; Visit Provider Nurse Practitioner
DX: R07.9 Chest pain, unspecified (principal)
CPT/HCPCS: 93017

== ENCOUNTER 2024-06-09 09:55 | Outpatient (CLI) | payer MEDICARE, SELFPAY ==
[2024-06-09 20:14] LABS: Alanine Aminotransferase 20 U/L (6-35); Alkaline Phosphatase 92 U/L (38-126); Anion Gap 7 mmol/L (4-12); Aspartate Amino Transferase 32 U/L (14-36); Bilirubin,Total 0.8 mg/dL (0.2-1.3); Blood Urea Nitrogen 25 mg/dL (7-17); Calcium 8.9 mg/dL (8.4-10.2); Carbon Dioxide 31 mmol/L (22-30); Chloride 101 mmol/L (98-107); Cholesterol 185 mg/dL (0-200); Estimated Glomerular Filt Rate 59; Glucose 81 mg/dL (65-110); HDL Direct 68 mg/dL; Potassium 4.1 mmol/L (3.4-5.0); Sodium 139 mmol/L (137-145); Triglycerides 88 mg/dL (<150)
[2024-06-09 20:33] LABS: LDL Cholesterol Direct 91 mg/dL
[2024-06-09 21:29] LABS: Vitamin D 25 Hydroxy 40.2 ng/mL
[2024-06-09 21:32] LABS: Microalbumin Urine Random 10.2 mg/L (0-16.7)
== END 2024-06-09 09:56 | disposition home or self-care (01) ==
LOC: ANHGOSHLAB 09:56
PROVIDERS: PCP Family Medicine; Visit Provider Nurse Practitioner
DX: E78.00 Pure hypercholesterolemia, unspecified (principal); E55.9 Vitamin D deficiency, unspecified; N18.9 Chronic kidney disease, unspecified
CPT/HCPCS: 36415; 80053; 80061; 82043; 82306

== ENCOUNTER 2024-09-16 08:34 | Outpatient (CLI) | payer MEDICARE, SELFPAY ==
--- NOTE | ~2024-09-16 | MM_ITS ---
EXAMINATION: MM screening roberto carlos BI w megan HISTORY: Screening TECHNIQUE: Craniocaudal and mediolateral oblique 3-D tomosynthesis images were obtained and synthetic 2-D images were generated. CAD analysis was submitted and interpreted. COMPARISON: Comparison to multiple prior studies sequentially, with oldest reviewed study dated 04/2017. BREAST PARENCHYMAL COMPOSITION: Not Dense: The breasts are almost entirely fatty. FINDINGS: There is no evidence of suspicious mass, calcification, or architectural distortion to sugg est malignancy in either breast. There has been no suspicious interval change. IMPRESSION: 1. No mammographic evidence of malignancy. 2. Recommend routine screening mammography in one year. BI-RADS Category 1: Negative Reviewed, dictated and finalized at location []
== END 2024-09-16 08:35 | disposition home or self-care (01) ==
LOC: ANHIMG 08:35
PROVIDERS: PCP Family Medicine; Visit Provider Nurse Practitioner
DX: Z12.31 Encounter for screening mammogram for malignant neoplasm of breast (principal)
CPT/HCPCS: 77063; 77067

== ENCOUNTER 2024-10-19 09:33 | Outpatient (CLI) | payer MEDICARE, SELFPAY ==
[2024-10-19 13:02] LABS: Alanine Aminotransferase 23 U/L (6-35); Albumin Level 4.1 g/dL (3.5-5.1); Alkaline Phosphatase 81 U/L (38-126); Anion Gap 6 mmol/L (4-12); Aspartate Amino Transferase 39 U/L (14-36); Bilirubin,Total 0.6 mg/dL (0.2-1.3); Blood Urea Nitrogen 18 mg/dL (7-17); Carbon Dioxide 29 mmol/L (22-30); Chloride 102 mmol/L (98-107); Cholesterol 196 mg/dL (0-200); Estimated Glomerular Filt Rate 54; Glucose 92 mg/dL (65-110); HDL Direct 63 mg/dL; Potassium 3.8 mmol/L (3.4-5.0); Sodium 137 mmol/L (137-145); Total Protein 6.9 g/dL (6.3-8.2); Triglycerides 93 mg/dL (<150)
[2024-10-19 13:19] LABS: LDL Cholesterol Direct 88 mg/dL
[2024-10-19 14:58] LABS: Creatinine Urine 124.6 mg/dL
[2024-10-19 15:02] LABS: Microalbumin Urine Random < 6.0 mg/L (0-16.7)
[2024-10-19 15:03] LABS: MALB Creatinine Ratio < 4.8 mg/g (0-30)
== END 2024-10-19 09:34 | disposition home or self-care (01) ==
LOC: ANHGOSHLAB 09:33
PROVIDERS: PCP Family Medicine; Visit Provider Nurse Practitioner
DX: E55.9 Vitamin D deficiency, unspecified (principal); E78.00 Pure hypercholesterolemia, unspecified; N18.9 Chronic kidney disease, unspecified
CPT/HCPCS: 36415; 80053; 80061; 82043; 82306

== ENCOUNTER 2025-02-16 08:54 | Outpatient (CLI) | payer MEDICARE, SELFPAY ==
[2025-02-16 19:07] LABS: Hematocrit 47.2 % (37.0-47.0); Hemoglobin 15.0 g/dL (12.0-15.0); Mean Corpuscular HGB Conc 31.8 g/dl (32-36); Mean Corpuscular Hemoglobin 30.8 pg (26-34); Mean Corpuscular Volume 96.9 fl (80-100); Platelet Count Result 355 k/mm3 (150-375); Red Blood Count 4.87 M/mm3 (4.2-5.4); White Blood Count 8.3 K/mm3 (4.5-10.0)
[2025-02-16 19:35] LABS: Alanine Aminotransferase 18 U/L (6-35); Albumin Level 4.2 g/dL (3.5-5.1); Alkaline Phosphatase 90 U/L (38-126); Anion Gap 8 mmol/L (4-12); Aspartate Amino Transferase 51 U/L (14-36); Bilirubin,Total 0.5 mg/dL (0.2-1.3); Blood Urea Nitrogen 20 mg/dL (7-17); Calcium 9.2 mg/dL (8.4-10.2); Carbon Dioxide 31 mmol/L (22-30); Chloride 100 mmol/L (98-107); Cholesterol 181 mg/dL (0-200); Estimated Glomerular Filt Rate 58; Glucose 68 mg/dL (65-110); HDL Direct 63 mg/dL; Potassium 4.3 mmol/L (3.4-5.0); Sodium 139 mmol/L (137-145); Total Protein 7.1 g/dL (6.3-8.2); Triglycerides 97 mg/dL (<150)
[2025-02-16 20:06] LABS: MALB Creatinine Ratio 6.4 mg/g (0-30)
[2025-02-17 00:32] LABS: Thyroid Stimulating Hormone 1.970 uIU/mL (0.465-4.680)
== END 2025-02-16 08:55 | disposition home or self-care (01) ==
PROVIDERS: PCP Family Medicine; Visit Provider Nurse Practitioner
DX: E03.9 Hypothyroidism, unspecified (principal); I12.9 Hypertensive chronic kidney disease with stage 1 through stage 4 chronic kidney disease, or unspecified chronic kidney disease; N18.9 Chronic kidney disease, unspecified; E78.00 Pure hypercholesterolemia, unspecified; E55.9 Vitamin D deficiency, unspecified
CPT/HCPCS: 36415; 80053; 80061; 82043; 82306; 84443; 85027